=== PATIENT | male | born 2000 | race Caucasian/White ===

== ENCOUNTER 2024-03-18 06:37 | Emergency (ER) | payer OTHER, SELFPAY ==
--- NOTE | ~2024-03-18 | CT_ITS ---
Non-contrast CT scan of the Abdomen and Pelvis Clinical indication: Left flank pain Technique: 2.5 mm axial scans were obtained through the abdomen and pelvis without intravenous or or al contrast. Dose reduction technique was used on this scan by utilizing automated exposure control a nd iterative reconstruction technique. The dose-length product (DLP) was 1161.20 mGy-cm. Findings: Images through the lung bases reveal no abnormalities. 2-3 mm distal left ureteral stone present, with minimal fullness of the right renal collecting system . No right-sided renal or ureteral stone. No right hydronephrosis. The liver, spleen, pancreas, gallbladder, and adrenals appear normal. There is no aortic aneurysm. There is no evidence of bowel obstruction. Images through the pelvis were performed. There is no evidence of ascites or lymphadenopathy. Urinary bladder unremarkable. IUD in place. Impression: 2-3 mm distal left ureteral stone, with minimal fullness of the left renal collecting system. Reviewed, dictated and finalized at [facility]. COLLECTOR Impression: 2-3 mm distal left ureteral stone, with minimal fullness of the left renal nina ecting system.
[2024-03-18 06:47] VITALS: BP 141/94; PULSE 77; RESP 14; TEMP 36.6; O2SAT 100
--- NOTE | 2024-03-18 07:04 | ED_ITS ---
HPI - General Adult General Chief complaint: Abdominal Pain Stated complaint: kidney infection Time Seen by Provider: 03/18/24 06:52 History of Present Illness HPI narrative: 24-year-old male presenting to the emergency department for evaluation for worsening left flank pain. Patient states he was recently started on antibiotics for urinary tract infection. Patient states he has had suprapubic abdominal tenderness but has had worsening left flank pain this morning. Patient does have associated nausea and vomiting. Related Data Allergies Allergy/AdvReac Type Severity Reaction Status Date / Time adhesive Allergy Unknown Verified 03/18/24 06:39 Review of Systems Review of Systems: All systems reviewed & are unremarkable except as noted in HPI and below Exam Narrative: APPEARANCE: Uncomfortable appearing HEAD: normocephalic, atraumatic. EYES: PERRLA/EOMI, conjunctivae clear. NOSE: Normal no drainage EARS:TMS clear with good light reflex. THROAT: Pharynx clear, no exudate. NECK: Supple. No adenopathy, no masses. RESPIRATORY: Airway patent, respirations nonlabored. Clear to auscultation bilaterally, no rales, rhonchi, wheezing. CARDIOVASCULAR: Regular rate and rhythm without murmurs rubs or gallops. ABDOMINAL: left CVA tenderness to palpation MUSCULOSKELETAL: Moves all extremities. Strength/ROM intact, No edema, No calf tenderness. NEURO: Alert. Cranial nerves II through XII intact. Good gait. Good coordination SKIN: Warm, dry. Normal Color Course Vital Signs Vital signs: Vital Signs Temperature 97.8 F 03/18/24 06:47 Pulse Rate 77 03/18/24 06:47 Respiratory Rate 14 03/18/24 06:47 Blood Pressure 141/94 H 03/18/24 06:47 Pulse Oximetry 100 03/18/24 06:47 Oxygen Delivery Room Air 03/18/24 06:47 Temperature 97.8 F 03/18/24 06:47 Pulse Rate 71 03/18/24 08:06 Respiratory Rate 19 03/18/24 08:06 Blood Pressure 143/94 H 03/18/24 08:06 Pulse Oximetry 100 03/18/24 08:06 Oxygen Delivery Room Air 03/18/24 06:47 Medical Decision Making [facility] Narrative Medical decision making narrative: 24-year-old transgender male presents emergency department for evaluation for persistent left flank pain. UA was positive for hematuria, CT scan was ordered to evaluate for kidney stone and does show a 2-3 mm distal left ureteral kidney stone. Patient did feel improved with IV Dilaudid and IV Toradol. On re-evaluation patient does feel improved. Patient will be provided [place] and Flomax for home. Patient already does have Zofran. Patient was encouraged to have close follow-up with Urology. Patient is currently living in [facility]. Differential Diagnosis Differential Diagnosis: Kidney stone, UTI, colitis, diverticulitis Medical Records Medical records reviewed: Yes I reviewed the external patient's medical records. Vital Signs Vital Signs: Vital Signs Temperature 97.8 F 03/18/24 06:47 Pulse Rate 77 03/18/24 06:47 Respiratory Rate 14 03/18/24 06:47 Blood Pressure 141/94 H 03/18/24 06:47 Pulse Oximetry 100 03/18/24 06:47 Oxygen Delivery Room Air 03/18/24 06:47 Temperature 97.8 F 03/18/24 06:47 Pulse Rate 71 03/18/24 08:06 Respiratory Rate 19 03/18/24 08:06 Blood Pressure 143/94 H 03/18/24 08:06 Pulse Oximetry 100 03/18/24 08:06 Oxygen Delivery Room Air 03/18/24 06:47 Lab Data 03/18/24 07:05 03/18/24 07:05 Labs: Lab Results 03/18/24 03/18/24 Range/Units 07:05 07:39 WBC 7.1 (4.5-10.0) K/mm3 RBC 6.38 H (4.6-6.20) M/mm3 Hgb 17.2 (14.0-18.0) g/dL Hct 51.9 (42.0-52.0) % MCV 81.3 (80-100) fl MCH 27.0 (26-34) pg MCHC 33.1 (32-36) g/dl RDW 13.9 (11.5-14.5) % Plt Count 303 (150-375) k/mm3 MPV 9.5 (7.4-10.4) fl Immature Gran % (Auto) 0.3 (0-0.5) % Neut % (Auto) 58.2 (45.5-73.1) % Lymph % (Auto) 29.5 (18.3-44.2) % [place] % (Auto) 8.9 H (2.6-8.5) % Eos % (Auto) 2.1 (0-4.4) % Baso % (Auto) 1.0 (0.2-1.2) % Lymph # (Auto) 2.10 (0.9-3.2) K/mm3 [place] # (Auto) 0.6 (0.1-0.6) K/mm3 Eos # (Auto) 0.2 (0-0.3) K/mm3 Baso # (Auto) 0.1 (0.0-0.1) K/mm3 Abs Immat Gran (auto) 0.02 (0.00-0.031) K/mm3 Absolute Neuts (auto) 4.1 (1.3-6.7) K/mm3 Absolute Nucleated RBC 0.000 (0.0-0.012) K/mm3 Nucleated RBC % 0.0 (0.0-0.2) % Sodium 138 (137-145) mmol/L Potassium 3.6 (3.4-5.0) mmol/L Chloride 102 (98-107) mmol/L Carbon Dioxide 27 (22-30) mmol/L Anion Gap 9 (4-12) mmol/L BUN 16 (9-20) mg/dL Creatinine 1.20 (0.7-1.3) mg/dL Estim Creat Clear Calc 89 ml/min Estimated GFR > 60 (59 - ) Glucose 125 H (65-110) mg/dL Calcium 9.0 (8.4-10.2) mg/dL Total Bilirubin 0.7 (0.2-1.3) mg/dL AST 31 (17-59) U/L ALT 35 (6-50) U/L Alkaline Phosphatase 85 (38-126) U/L Total Protein 7.0 (6.3-8.2) g/dL Albumin 4.6 (3.5-5.1) g/dL Lipase 59 (23-300) U/L Urine Color Dark yellow (Yellow) Urine Appearance Cloudy H (Clear) Urine pH 6.5 (5.0-9.0) Ur Specific [place] 1.028 (1.001-1.035) Urine Protein 2+ H (Negative) mg/dL Urine Glucose (UA) Negative (Negative) mg/dL Urine Ketones Negative (Negative) mg/dL Ur Blood (Man) 3+ H (Negative) Urine Nitrate Negative (Negative) Urine Bilirubin Negative (Negative) Urine Urobilinogen 1.0 (<2.0) mg/dL Add Ur Microanalysis Reviewed Leukocyte Esterase Rfl 2+ H (Negative) ERIN/UL Urine RBC >100 H (0-2) /hpf Urine WBC 21-50 H (0-3) /hpf Ur Squamous Epith Cells Few (Few) /hpf Urine Bacteria None seen /hpf Urine Casts 3-5 Imaging Data Radiologist's impression: Impressions Abdomen/Pelvis CT 03/18/24 07:44 Impression: 2-3 mm distal left ureteral stone, with minimal fullness of the left renal collecting system. Discharge Plan Discharge Clinical Impression: Hematuria, Calculi, ureter Patient Disposition: Home, Self-Care Condition: Stable Instructions: Antibiotic Form, Kidney Stones (ED), How to Strain Your Urine (ED), Abdominal Pain (ED) Additional Instructions: Anti-inflammatories for pain control. Tylenol as needed for pain control. Replace the Tylenol with [place] as needed for additional pain control. Do not take Tylenol and [place] at the same time as both do contain acetaminophen. Zofran as needed for nausea. Flomax as directed to help you pass the stone. Strain your urine and collect the stone as instructed. Have close follow-up with your local urologist. If you have any worsening symptoms then please call or return to the emergency department. Prescriptions: New hydrocodone-acetaminophen 5-325 mg tablet 1 tablet PO Q12H PRN (Reason: pain) Qty: 14 0RF tamsulosin [Flomax] 0.4 mg capsule 0.4 mg PO DAILY Qty: 14 0RF Follow-up/Referrals: Raf Sheets MD [Physician] - PHYSICIAN,INTERNAL CONTROLS ANALYST [Non-Staff] -
[2024-03-18 07:12] LABS: Basophils Absolute Auto 0.1 K/mm3 (0.0-0.1); Eosinophils Absolute Auto 0.2 K/mm3 (0-0.3); Eosinophils Percent Auto 2.1 % (0-4.4); Hematocrit 51.9 % (42.0-52.0); Hemoglobin 17.2 g/dL (14.0-18.0); Immature Granulocyte Absolute 0.02 K/mm3 (0.00-0.031); Immature Granulocyte Percent A 0.3 % (0-0.5); Lymphocytes Percent Auto 29.5 % (18.3-44.2); Mean Corpuscular HGB Conc 33.1 g/dl (32-36); Mean Corpuscular Volume 81.3 fl (80-100); Mean Platelet Volume 9.5 fl (7.4-10.4); Monocytes Absolute Auto 0.6 K/mm3 (0.1-0.6); Monocytes Percent Auto 8.9 % (2.6-8.5); Neutrophils Absolute Auto 4.1 K/mm3 (1.3-6.7); Neutrophils Percent Auto 58.2 % (45.5-73.1); Platelet Count Result 303 k/mm3 (150-375); Red Blood Count 6.38 M/mm3 (4.6-6.20); Red Cell Distribution Width 13.9 % (11.5-14.5); White Blood Count 7.1 K/mm3 (4.5-10.0)
[2024-03-18] MEDS: HYDROmorphone HCL INJ (*CRX) 1 MG/ML SYR IV PUSH (07:14)
[2024-03-18] MEDS: ONDANSETRON INJ 4 MG/2 ML VIAL IV PUSH (07:14)
[2024-03-18 07:24] LABS: Alanine Aminotransferase 35 U/L (6-50); Albumin Level 4.6 g/dL (3.5-5.1); Alkaline Phosphatase 85 U/L (38-126); Anion Gap 9 mmol/L (4-12); Aspartate Amino Transferase 31 U/L (17-59); Bilirubin,Total 0.7 mg/dL (0.2-1.3); Blood Urea Nitrogen 16 mg/dL (9-20); Carbon Dioxide 27 mmol/L (22-30); Chloride 102 mmol/L (98-107); Estimated CRCL calculation 89 ml/min; Estimated Glomerular Filt Rate > 60; Glucose 125 mg/dL (65-110); Lipase 59 U/L (23-300); Potassium 3.6 mmol/L (3.4-5.0); Sodium 138 mmol/L (137-145)
[2024-03-18 08:06] VITALS: BP 143/94; PULSE 71; RESP 19; O2SAT 100
[2024-03-18 08:15] LABS: Add Urine Microscopic? YES; Appearance Urine Cloudy (Clear); Bacteria Urine None Seen /hpf; Bilirubin Urine Negative (Negative); Blood Urine 3+ (Negative); Color Urine Dark Yellow (Yellow); Glucose Urine UA Negative (Negative); Ketones Urine Negative (Negative); Leukocyte Esterase Ur 2+ LEU/UL (Negative); Need Manual Microscopic Reviewed; Nitrate Urine Negative (Negative); Protein Urine 2+ mg/dL (Negative); RBC Urine >100 /hpf (0-2); Specific Grav Ur 1.028 (1.001-1.035); Squamous Epithelial Cell Urine Few /hpf (Few); WBC Urine 21-50 /hpf (0-3); pH Urine 6.5 (5.0-9.0)
[2024-03-18] MEDS: TAMSULOSIN HCL 0.4 MG CAPSULE PO (08:15)
[2024-03-18] MEDS: KETOROLAC 15 MG/ML VIAL (*BKC) IV PUSH (08:15)
== END 2024-03-18 09:02 | disposition home or self-care (01) ==
PROVIDERS: Emergency Medicine; Emergency Provider Emergency Medicine
DX: N20.1 Calculus of ureter (principal); R31.9 Hematuria, unspecified
CPT/HCPCS: 36415; 74176; 80053; 81001; 83690; 85025; 87086; 96374; 96375; 99284; A9270; J1171; J1885; J2405